=== PATIENT | female | born 1985 | race Caucasian/White ===

== ENCOUNTER 2022-12-24 13:01 | Emergency (ER) | payer MEDICAID, OTHER ==
[~2022-12-24] VITALS: Ht 152 cm; Wt 60.0 kg
[2022-12-24 13:15] VITALS: BP 121/98
--- NOTE | 2022-12-24 14:19 | ED EENT ---
History of Present Illness General Chief Complaint: Dental Problems/Pain Stated Complaint: DENTAL PAIN Nursing Triage Note: Patient reports a broken tooth - right lower molar - broken about a month. She was seen in the [facility] ER and started on Keflex but she stopped taking the antibiotics because it made her stomach hurt. She has not seen a dentist and she has not made an appointment to see a dentist and came to ER for evaluation. Source: patient History of Present Illness Date Seen by Provider: Dec 24, 2022 Time Seen by Provider: 14:18 Initial Comments 37-year-old female presenting with complaints of recurrent dental pain to the right lower posterior molar. She states that it has given her pain off and on for a while now. She was seen about a month ago at [facility] and states that they placed her on an antibiotic. She was taking clindamycin but stopped taking it because she felt like it was hurting her stomach. She had spoke with the pharmacist and they recommended she contact her primary care provider. She states that she tried calling her primary care provider multiple times but had never got a call back. Because she was happy with the care she received [place] she came here to the emergency department today. She states that she has not made an appointment with a dentist but that she just got a new job as well as a friend that was willing to drive her down to [place] to see a dentist. She states that she has had some chills. She was concerned that she was getting an infection. She states she does have some tramadol leftover from a back injury. Timing/Duration: abrupt Severity: severe Location: dental Prearrival Treatment: over the counter meds Modifying Factors: Worse With Other (Eating and drinking) Associated Symptoms: No change in hearing, No cough, No drooling, No ear drainage; facial pain/swelling; No fever; malaise; No nasal congestion/drainage, No poor fluid intake, No poor solids intake, No sinus infection, No sore throat; tooth pain; No voice change Allergies and Home Medications Allergies Coded Allergies: No Known Drug Allergies (Unverified , 12/24/22) Patient Home Medication List Home Medication List Reviewed: Yes Amoxicillin/Potassium Clav (Amox Tr-K Clv 875-125 mg Tab) 875 Mg-125 Mg Tablet, 1 EACH PO BID Prescribed by: ROCHELLE YEE on 12/24/22 1433 Chlorhexidine Gluconate (Peridex) 0.12 % Mouthwash, 15 ML MM BID Prescribed by: ROCHELLE YEE on 12/24/22 1433 Review of Systems Review of Systems Constitutional: see HPI Eyes: No Symptoms Reported Ears: No Symptoms Reported Nose: no symptoms reported Mouth: see HPI Throat: no symptoms reported Respiratory: no symptoms reported Cardiovascular: no symptoms reported Gastrointestinal: no symptoms reported Musculoskeletal: no symptoms reported Past Oyhslqo-Wlvrik-Axxczn Hx Patient Social History Tobacco Use?: Yes Tobacco type used: Cigarettes Alcohol Use?: Yes Alcohol Frequency: Several times a month Physical Exam Vital Signs Vital Signs - First Documented 12/24/22 13:15 Temp 36.5 Pulse 108 Resp 16 B/P (MAP) 121/98 (106) Pulse Ox 100 O2 Delivery Room Air Height, Weight, BMI Height: '" Weight: lbs. oz. kg; 25.00 BMI Method: General Appearance: WD/WN, no apparent distress Eyes: bilateral eye PERRL, bilateral eye EOMI Mouth/Throat: pharynx normal, dental tenderness (Right posterior molar. Patient has widespread dental decay.) Neck: non-tender, full range of motion Cardiovascular: normal peripheral pulses, regular rate, rhythm Respiratory: chest non-tender, lungs clear, normal breath sounds Neurologic/Psychiatric: alert, oriented x 3 Skin: warm/dry Progress/Results/Core Measures Results/Orders My Orders Orders - ROCHELLE YEE MD Ceftriaxone Iv/Im (Ceftriaxone Iv/Im) (12/24/22 14:27) Lidocaine 1% Inj 20 Ml (Xylocaine 1% Inj (12/24/22 14:30) Medications Given in ED Current Medications Medications Dose Ordered Sig/Titus Route Start Time Stop Time Status Last Admin Dose Admin Lidocaine HCl 2.1 ml ONCE ONCE INJ 12/24/22 14:30 12/24/22 14:31 DC 12/24/22 14:32 2.1 ML Vital Signs/I&O 12/24/22 13:15 Temp 36.5 Pulse 108 Resp 16 B/P (MAP) 121/98 (106) Pulse Ox 100 O2 Delivery Room Air Blood Pressure Mean: 106 Progress Progress Note : Progress Note Counseled patient that we could do a Rocephin 1 g IM shot here to initiate treatment with antibiotics. That would also help with her sensation of swelling and pain. Start her on Augmentin 875 twice daily and encouraged her to do probiotics or at least food when she takes the antibiotic. Encouraged to check with dentist and primary care provider. Patient stated that she did not need any pain medicine as she has been taking Tylenol and ibuprofen as well as she has a few tramadol left from her back pain issues. Stressed importance of getting in with the dentist as soon as possible. Also prescribed Peridex so that she had a prescription mouthwash to try and help with gingival infection and inflammation as well as decreasing the bacteria in the mouth. Departure Impression Primary Impression: Pain due to dental caries Disposition: 01 HOME, SELF-CARE Condition: Stable Departure-Patient Inst. Decision time for Depature: 14:29 Referrals: RAMANDEEP MOTTA MD (PCP) Primary Care Physician Patient Instructions: Tooth Decay ED, Dental Pain ED Add. Discharge Instructions: Follow-up with a dentist as soon as possible for definitive care with your teeth. Take the antibiotic twice a day to help treat for possible infection and help with the pain. Take this with food as it can upset your stomach. Avoid alcohol use while taking the antibiotics. Use the prescription mouthwash to help with pain and infection in the mouth. You may continue to use acetaminophen and/or ibuprofen to help with pain. For severe pain you could take some of the tramadol that you still have at home as well. You could check with the [facility] dental clinic in [place] about receiving dental care. All discharge instructions reviewed with patient and/or family. Voiced understan kaylee. Scripts Chlorhexidine Gluconate (Peridex) 0.12 % Mouthwash 15 ML MM BID for dental pain/infection for 14 Days, #420 ML 0 Refills Prov: ROCHELLE YEE MD 12/24/22 Amoxicillin/Potassium Clav (Amox Tr-K Clv 875-125 mg Tab) 875 Mg-125 Mg Tablet 1 EACH PO BID for dental pain/infection for 10 Days, #20 TAB 0 Refills Prov: ROCHELLE YEE MD 12/24/22 ROCHELLE YEE MD Dec 24, 2022 14:19
[2022-12-24] MEDS ORDERED: cefTRIAXone 1,000 MG VIAL IV/IM IM STA (14:27)
[2022-12-24] MEDS ORDERED: LIDOCAINE 1% INJ 20 ML VIAL INJ ONE (14:30)
[2022-12-24] MEDS ORDERED: CHLO473M4 MM (14:33)
[2022-12-24] MEDS ORDERED: AMOX1TAB12 PO (14:33)
== END 2022-12-24 14:46 | disposition home or self-care (01) ==
LOC: ER FS 13:03
DX: K02.9 Dental caries, unspecified (principal); F17.210 Nicotine dependence, cigarettes, uncomplicated
CPT/HCPCS: 96372; 99284